=== PATIENT | male | born 1960 | race Caucasian/White ===

== ENCOUNTER 2022-03-27 20:58 | Outpatient (CLI) | payer OTHER, SELFPAY ==
--- NOTE | 2022-04-04 12:26 | P.SLS_ITS ---
Sleep Study Details Details Interpreting Provider: Norm Vallejo MD Date of Sleep Study: 03/27/22 Sleep Study Details: STUDY TYPE:? Hospital polysomnogram with CPAP titration ? BMI:? 34.1 ORDERING PROVIDER:? Fell and INDICATION:? Concerns about sleep apnea ? SLEEP SUMMARY:? Sleep time 396.5, efficiency 85.4, latency 30.5. Arousal index 7.7 RESPIRATORY SUMMARY:? Mean oxygen awake 98, asleep 96, low oxygen 87. 0.7 minutes oxygen was between 80 and 88% new line AHI 19.3, RDI 21, REM AHI 31.1 Supine AHI 30.6 no supine REM sleep was seen. Nonsupine AHI was 12.6 nonsupine REM AHI was 31.1 CPAP titration was attempted in the patient was titrated to a pressure of 8 decreasing AHI to 0. This included REM stage sleep in the nonsupine position. PERIODIC LIMB MOVEMENTS OF SLEEP:? 0 CARDIAC:? Awake 67, asleep 62. No arrhythmias noted IMPRESSION:? Moderate obstructive sleep apnea with supine position and REM dependency. CPAP titration was effective in the lateral position RECOMMENDATION: Initiate AutoSet CPAP at a pressure of 8-17 with close follow- up.
--- NOTE | 2022-04-11 12:35 | P.SLS_ITS ---
Sleep Study Details Details Interpreting Provider: Norm Vallejo MD Date of Sleep Study: 03/27/22 Sleep Study Details: STUDY TYPE:? [facility] polysomnography with CPAP titration ? BMI:? 34.1 ORDERING PROVIDER:? Fell and INDICATION:? Concerns about sleep apnea ? SLEEP SUMMARY:? Sleep time 396.5, efficiency 85.4, latency 30.5, arousal index 7.7 RESPIRATORY SUMMARY:? Mean oxygen awake 98 asleep 96, minimum 87, 0.7 minutes oxygen between 80 and 88%. AHI 19.3 6, supine AHI 30.6, nonsupine AHI 12.6. There was no supine REM sleep. Nonsupine REM AHI 31.1 CPAP titration was performed the patient was titrated to a pressure of 8 which included 17.8 minutes of REM stage sleep in the nonsupine position. This would be viewed as a moderately successful titration PERIODIC LIMB MOVEMENTS OF SLEEP:? 0 pre and post treatment CARDIAC:? Awake 67, asleep 62 no arrhythmias noted IMPRESSION:? Moderate obstructive sleep apnea with an AHI of 19.3. There was both supine position dependency and nonsupine REM dependency. Titration was successful in the lateral position and included REM stage sleep. Best pressure in the nonsupine position was 8. RECOMMENDATION: Initiate CPAP auto set at a pressure of 7-15 with close follow- up.
== END 2022-03-27 20:59 | disposition home or self-care (01) ==
LOC: SLEEP 20:58
PROVIDERS: PCP Family Medicine; Visit Provider Family Medicine
DX: G47.33 Obstructive sleep apnea (adult) (pediatric) (principal)
CPT/HCPCS: 95811

== ENCOUNTER 2022-12-22 08:06 | Outpatient (CLI) | payer OTHER, SELFPAY | END 2022-12-22 08:07 | disposition home or self-care (01) | LOC: NFLDREF 12-23 19:57 | PROVIDERS: PCP Family Medicine; Referring Provider Family Medicine; Visit Provider Family Medicine | DX: Z00.00 Encounter for general adult medical examination without abnormal findings (principal); R73.9 Hyperglycemia, unspecified; R68.82 Decreased libido; I10 Essential (primary) hypertension; L03.90 Cellulitis, unspecified; N28.9 Disorder of kidney and ureter, unspecified | CPT/HCPCS: 80048; 80061; 84153; 84550 ==

== ENCOUNTER 2022-12-26 09:20 | Outpatient (CLI) | payer OTHER, SELFPAY | END 2022-12-26 09:21 | disposition home or self-care (01) | LOC: LKVREF 09:21 | PROVIDERS: PCP Family Medicine; Visit Provider Family Medicine | DX: Z00.00 Encounter for general adult medical examination without abnormal findings (principal); R68.82 Decreased libido; R73.9 Hyperglycemia, unspecified; I10 Essential (primary) hypertension; N28.9 Disorder of kidney and ureter, unspecified | CPT/HCPCS: 84270; 84402; 84403 ==

== ENCOUNTER 2023-11-15 14:07 | Outpatient (CLI) | payer OTHER, SELFPAY | END 2023-11-15 14:08 | disposition home or self-care (01) | LOC: LKVREF 14:08 | PROVIDERS: PCP Family Medicine; Visit Provider Family Medicine | DX: J18.9 Pneumonia, unspecified organism (principal); N28.9 Disorder of kidney and ureter, unspecified; R79.89 Other specified abnormal findings of blood chemistry | CPT/HCPCS: 80048 ==

== ENCOUNTER 2024-01-03 08:40 | Outpatient (CLI) | payer OTHER, SELFPAY | END 2024-01-03 08:41 | disposition home or self-care (01) | PROVIDERS: PCP Family Medicine; Visit Provider Family Medicine | DX: R68.82 Decreased libido (principal); R73.03 Prediabetes; M10.9 Gout, unspecified; Z13.220 Encounter for screening for lipoid disorders; Z12.5 Encounter for screening for malignant neoplasm of prostate | CPT/HCPCS: 80053; 80061; 84270; 84402; 84403; 84550; G0103 ==

== ENCOUNTER 2024-12-02 11:41 | Outpatient (CLI) | payer MEDICARE, BC, SELFPAY | END 2024-12-02 11:42 | disposition home or self-care (01) | LOC: NFLDREF 12-03 08:07 | PROVIDERS: PCP Family Medicine; Referring Provider Family Medicine; Visit Provider Family Medicine | DX: R73.03 Prediabetes (principal); I12.9 Hypertensive chronic kidney disease with stage 1 through stage 4 chronic kidney disease, or unspecified chronic kidney disease; N18.30 Chronic kidney disease, stage 3 unspecified; N40.0 Benign prostatic hyperplasia without lower urinary tract symptoms; R53.83 Other fatigue; Z12.5 Encounter for screening for malignant neoplasm of prostate; Z13.29 Encounter for screening for other suspected endocrine disorder | CPT/HCPCS: 80053; 80061; 82043; 82570; 84270; 84402; 84403; G0103 ==